=== PATIENT | female | born 1965 | race Caucasian/White ===

== ENCOUNTER → 2020-09-11 | Outpatient (CLI) | payer BC | LOC: LAB 13:45 | DX: M81.0 Age-related osteoporosis without current pathological fracture (principal); M25.60 Stiffness of unspecified joint, not elsewhere classified; R70.0 Elevated erythrocyte sedimentation rate; M25.50 Pain in unspecified joint | CPT/HCPCS: 36415; 82164; 82728; 83520; 84439; 84443; 85652; 86140 ==